=== PATIENT | male | born 1935 | race Caucasian/White ===

== ENCOUNTER 2016-12-13 19:15 | Inpatient (IN) | payer MEDICARE, OTHER ==
--- NOTE | ~2016-12-13 | CN ---
Consultation Report [facility] [address] [place]. [address] NAME: TYSON BATEMAN : 37 STATUS : ADM IN PAT#: [id number] AGE: 81 ADM/REG DATE : 12/13/16 MR#: [id number] REPORT SERV DATE: 12/14/16 DICTATED BY: TOMMY KLEIN DATE: 12/14/16 REPORT STATUS : Draft TRANSCRIBED BY: MODL DATE: 12/14/16 GI CONSULTATION DATE OF CONSULTATION: 12/14/2016 REASON FOR CONSULTATION: Evaluation and management of acute blood loss anemia, rectal bleeding, and abnormal CT scan. HISTORY OF PRESENT ILLNESS: Mr. Bateman is a 81-year-old male patient, who was admitted from the [facility] in [facility] secondary to anemia and bright red blood per rectum. It should be noted that the history of present illness has been gathered from review of the chart as well as [facility]. The patient does suffer from dementia and is limited on what he can tell me. He does state that he was sent in because he was passing blood in his stools. He tells me that he did not notice, it was told by a residential staff. He had an outpatient hemoglobin in the low sevens, thus prompting him to be sent to [facility] for further evaluation. He to me denied any abdominal pain, constipation, or diarrhea. Review of records, it looks like he had some complaints of lower back pain with radiation to the flank particularly on the right side. He has some shortness of breath as well as some dyspnea on exertion. CT scan was done on admission, noncontrasted exam showed suspected asymmetric thickening of the right side of the inferior rectal vault with recommendations of correlation of direct clinical exam. He had some mild suspected left bladder base thickening. Hemoglobin on admission was 7.2. He has received one unit of packed red blood cells, and is at present receiving the second unit. Last hemoglobin check was 8.1, BUN of 23, creatinine of 1.03. He is on a regimen of Xarelto, last dose being 12/12/2016 secondary to proximal atrial fibrillation. I have discussed with Mr. Bateman, we will plan on pursuing EGD as well as colonoscopy tomorrow on 12/15/2016 to evaluate his GI tract. I did discuss the risks, benefits, alternatives, and complications with him to include, but not limited to risk of bleeding, perforation, infection, reaction to medication, as well as cardiac and pulmonary side effects. PAST MEDICAL HISTORY: Paroxysmal atrial fibrillation, dementia, pacemaker placement, hypertension, anemia, urinary tract infections, and BPH. PAST SURGICAL HISTORY: Pacemaker and right hip surgery. SOCIAL HISTORY: Past tobacco. No alcohol. Resides at the [facility] in [facility]. FAMILY HISTORY: Noncontributory from a GI standpoint. ALLERGIES: ALLERGIES ARE TO NOTHING. HOME MEDICATIONS: Consist of Tylenol, albuterol, Advair, Zyprexa, Paxil, Xarelto, and Crestor. Consultation Report [place] [id number] [facility] [place]. [address] NAME: TYSON BATEMAN : 37 STATUS : ADM IN [facility]#: [id number] AGE: 81 ADM/REG DATE : 12/13/16 MR#: [id number] REPORT SERV DATE: 12/14/16 DICTATED BY: TOMMY KLEIN DATE: 12/14/16 REPORT STATUS : Draft TRANSCRIBED BY: PURNIMA DATE: 12/14/16 REVIEW OF SYSTEMS: Somewhat limited to the patient's demented status. PHYSICAL EXAMINATION: VITAL SIGNS: Temperature 98, pulse 90, respirations 18, and blood pressure 142/70. NEUROLOGIC: Reveals a male resting in bed. He awakens to name. GENERAL: He is cooperative. He is in no apparent distress. He is awake and alert. He has some mild right-sided weakness. HEAD, EARS, EYES, NOSE, AND THROAT: Anicteric. Pupils are equal, round, and reactive to light and accommodation. Normocephalic and atraumatic. NECK: No JVD. No palpable nodes. Supple. LUNGS: Diminished throughout with normal respiratory effort exhibited. Equal expansion. CARDIOVASCULAR SYSTEM: At present, regular rate and rhythm. ABDOMEN: Soft, nontender, and nondistended with active bowel sounds in all four quadrants. No organomegaly appreciated. EXTREMITIES: He has slight bilateral lower extremity edema with right lower extremity jesus redness. PERTINENT LABORATORY DATA: Sodium 142, potassium 4.0, BUN is 20, and creatinine 1. White count 7.3, hemoglobin 8.1, hematocrit 26.5, and platelet count 385. INR 1.2. BNP 216. TSH 1.9. ASSESSMENT: 1. Acute blood loss anemia with a history of chronic anemia. 2. Rectal bleeding. 3. Proximal atrial fibrillation, on Xarelto, last dose on 12/12/2016. 4. Mild volume overload, was given Lasix. 5. Dementia. 6. Abnormal CT scan of the rectum. PLAN: 1. Clear liquid diet. 2. Bowel prep. 3. Follow H and H, transfuse if needed. 4. EGD of the colon in the morning. 5. Labs of CBC, BMP, PT/INR and a CEA level. We will follow along. YULIANA/PURNIMA NATALYA Lua / [id number] Consultation Report [place] [address] [place]. [address] NAME: TYSON BATEMAN : 37 STATUS : ADM IN PAT#: [id number] AGE: 81 ADM/REG DATE : 12/13/16 MR#: [id number] REPORT SERV DATE: 12/14/16 DICTATED BY: TOMMY KLEIN DATE: 12/14/16 REPORT STATUS : Draft TRANSCRIBED BY: PURNIMA DATE: 12/14/16 CC: Edinson Laughlin M.D.
--- NOTE | ~2016-12-13 | DS ---
Discharge Summary [facility] [address] [place]. [address] NAME: TYSON BATEMAN : 37 STATUS : ADM IN [facility]#: [id number] AGE: 81 ADM/REG DATE : 12/13/16 MR#: [id number] REPORT SERV DATE: 12/16/16 DICTATED BY: CAREY LAO DATE: 12/16/16 REPORT STATUS : Draft TRANSCRIBED BY: MODL DATE: 12/16/16 ADMISSION DATE: 12/13/2016 DISCHARGE DATE: FINAL DIAGNOSES: 1. Acute blood loss anemia, status post two units of packed RBC. 2. Status rectal bleeding, likely diverticular bleed. 3. Paroxysmal atrial fibrillation with history of permanent pacemaker. 4. Hypertension. 5. Dementia. DIAGNOSTIC EXAMS: Echocardiogram showing normal left ventricular size with low-normal left ventricular systolic function with EF of 50%; mild left ventricular diastolic dysfunction; normal right ventricular size and systolic function; mild left atrial enlargement; mild aortic, mitral, and tricuspid regurgitation. Chest x-ray showing increased volume overload or CHF pattern. CAT scan of the abdomen showing suspected asymmetric thickening of the right side of the inferior rectal vault, recommend correlation with direct clinical exam; mild suspected left bladder base thickening; healed right femoral neck fracture; status post percutaneous pinning; small left adrenal adenoma; superior T10, T12, L1; and moderate DDD, L3-L5. HOSPITAL COURSE: Please refer to the H and P done by Dr. Arriaza dated on 12/14/2016. Briefly, this is a 81-year-old male with dementia, permanent pacemaker, residing at the [facility] in [facility]. The patient presented with hematochezia in the assisted and was found to be anemic, the patient was then transferred to our hospital. He was found to have an H and H of 7.2 and 24 and got two units of packed RBC. His H and H went up to 8.6 and 28.7 on discharge. We got GI to consult, and they did an EGD on the patient which revealed normal examination with no suggestion of bleeding and a colonoscopy showing diverticulosis in the sigmoid colon. Examination was otherwise normal. The patient's H and H was followed, it remained stable, there was no more evidence of bleeding. Meanwhile, after we gave blood, the patient went into some fluid overload. We did an echocardiogram which shows the above findings. We did not believe that he had a congestive heart failure; however, this might be due to the 2 units of blood that was given in a 81-year-old. Lasix was given, and the patient did well. We also interrogated the pacemaker, it was working fine, but it has only two months of battery life left, and I talked with the assisted, the patient already has a followup for a battery replacement next week in [place] with his aerographer, Dr. Liomn. The patient will now be discharged back to [facility]. He will be on the following medications: Zyprexa 5 mg three times a day; Paxil 40 mg a day; Xarelto 20 mg a day; Advair one puff twice a day, 250/50; Crestor 5 mg a day; Tylenol p.r.n.; and DuoNeb p.r.n. The patient will follow up with the assisted doctor and his PCP, Dr. Chin Jean; this has been explained to the patient and also to the assisted nurse, Charo, and they agreed Discharge Summary [address] [address] NAME: TYSON BATEMAN : 37 STATUS : ADM IN [facility]#: [id number] AGE: 81 ADM/REG DATE : 12/13/16 MR#: [id number] REPORT SERV DATE: 12/16/16 DICTATED BY: CAREY LAO DATE: 12/16/16 REPORT STATUS : Draft TRANSCRIBED BY: PURNIMA DATE: 12/16/16 and understood the plan. DWAINE/PURNIMA Carey Lao M.D. / [id number] CC: Edinson Laughlin M.D. Jung Park, M.D.
--- NOTE | ~2016-12-13 | EGD ---
EGD REPORT [facility] [address] [address] NAME: MYKE BATEMAN : 37 STATUS : ADM IN PAT#: [id number] AGE: 81 ADM/REG DATE : 12/13/16 MR#: [id number] REPORT SERV DATE: 12/15/16 DICTATED BY: OMAR TINEO DATE: 12/15/16 REPORT STATUS : Draft TRANSCRIBED BY: [facility] DATE: 12/15/16 Endoscopy Center Patient Name: Myke Bateman Date of : 1935 Attending MD: OMAR TINEO MD Procedure Date No Time: 12/15/2016 Procedure: Colonoscopy Indications: Hematochezia Referring MD: BRITTA MILLS Medicines: Monitored Anesthesia Care Complications: No immediate complications. Estimated blood loss: None. Procedure: Pre-Anesthesia Assessment: - ASA Grade Assessment: III - A patient with severe systemic disease. After I obtained informed consent, the scope was passed under direct vision. Throughout the procedure, the patient's blood pressure, pulse, and oxygen saturations were monitored continuously. The CF [id number] was introduced through the anus and advanced to the cecum, identified by appendiceal orifice and ileocecal valve. The colonoscopy was performed without difficulty. The patient tolerated the procedure well. The quality of the bowel preparation was good. Findings: The perianal and digital rectal examinations were normal. Pertinent negatives include normal sphincter tone and no palpable rectal lesions. A few medium-mouthed diverticula were found in the sigmoid colon. The exam was otherwise without abnormality on direct and retroflexion views. Impression: - Diverticulosis in the sigmoid colon. - The examination was otherwise normal on direct and retroflexion views. Recommendation: - Return patient to [facility] for observation. - Check hemoglobin q 12 hours until stable. Procedure Code(s): --- Professional --- 87026, Colonoscopy, flexible, proximal to splenic flexure; diagnostic, with or without collection of specimen(s) by brushing or washing, with or without colon decompression (separate procedure) Diagnosis Code(s): --- Professional --- EGD REPORT [address] [address] NAME: MYKE BATEMAN : 37 STATUS : ADM IN [facility]#: [id number] AGE: 81 ADM/REG DATE : 12/13/16 MR#: [id number] REPORT SERV DATE: 12/15/16 DICTATED BY: OMAR TINEO DATE: 12/15/16 REPORT STATUS : Draft TRANSCRIBED BY: [employer] DATE: 12/15/16 K57.30, Diverticulosis of large intestine without perforation or abscess without bleeding K92.1, Melena CPT copyright 2013 [employer]. All rights reserved. The codes documented in this report are preliminary and upon elevator repair mechanic review may be revised to meet current compliance requirements. Omar Tineo MD OMAR TINEO MD 12/15/2016 8:55 AM This report has been signed electronically. Number of Addenda: 0 Note Initiated On: 12/15/2016 8:17 AM Scope Withdrawal Time 0 hours 10 minutes [address] [place] [address]
--- NOTE | ~2016-12-13 | EGD ---
EGD REPORT [facility] [address] [address] NAME: MYKE BATEMAN : 37 STATUS : ADM IN PAT#: [id number] AGE: 81 ADM/REG DATE : 12/13/16 MR#: [id number] REPORT SERV DATE: 12/15/16 DICTATED BY: OMAR TINEO DATE: 12/15/16 REPORT STATUS : Draft TRANSCRIBED BY: [facility] DATE: 12/15/16 Endoscopy Center Patient Name: Myke Bateman Date of : 1935 Attending MD: OMAR TINEO MD Procedure Date No Time: 12/15/2016 Procedure: Upper GI endoscopy Indications: Hematochezia Referring MD: BRITTA MILLS Medicines: Monitored Anesthesia Care Complications: No immediate complications. Estimated blood loss: None. Procedure: Pre-Anesthesia Assessment: - ASA Grade Assessment: III - A patient with severe systemic disease. After obtaining informed consent, the endoscope was passed under direct vision. Throughout the procedure, the patient's blood pressure, pulse, and oxygen saturations were monitored continuously. The GIF [id number] was introduced through the mouth, and advanced to the second part of duodenum. The upper GI endoscopy was accomplished without difficulty. The patient tolerated the procedure well. Findings: The examined esophagus was normal. The entire examined stomach was normal. The examined duodenum was normal. The cardia and gastric fundus were normal on retroflexion. Impression: - Normal examination with no suggestion of bleeding. Recommendation: - Perform a colonoscopy today. Procedure Code(s): --- Professional --- 57977, Esophagogastroduodenoscopy, flexible, transoral; diagnostic, including collection of specimen(s) by brushing or washing, when performed (separate procedure) Diagnosis Code(s): --- Professional --- K92.1, Melena CPT copyright 2013 [employer]. All rights reserved. The codes documented in this report are preliminary and upon sustainable agriculture specialist review may EGD REPORT [facility] [address] [address] NAME: MYKE BATEMAN : 37 STATUS : ADM IN [facility]#: [id number] AGE: 81 ADM/REG DATE : 12/13/16 MR#: [id number] REPORT SERV DATE: 12/15/16 DICTATED BY: OMAR TINEO DATE: 12/15/16 REPORT STATUS : Draft TRANSCRIBED BY: [employer] DATE: 12/15/16 be revised to meet current compliance requirements. Omar Tineo MD OMAR TINEO MD 12/15/2016 8:32 AM This report has been signed electronically. Number of Addenda: 0 Note Initiated On: 12/15/2016 8:16 AM Scope Withdrawal Time 0 hours 0 minutes 0 seconds [address] [address]
--- NOTE | ~2016-12-13 | HP ---
History And Physical [address] [address] NAME: TYSON BATEMAN : 37 STATUS : ADM IN PAT#: [id number] AGE: 81 ADM/REG DATE : 12/13/16 MR#: [id number] REPORT SERV DATE: 12/14/16 DICTATED BY: CLAUDINE OTOOLE DATE: 12/14/16 REPORT STATUS : Draft TRANSCRIBED BY: MODL DATE: 12/14/16 DATE OF ADMISSION: 12/13/2016 CHIEF COMPLAINT: A 81-year-old male with chronic dementia, residing at the [facility] in [place], now presenting with anemia and bright red blood per rectum. HISTORY OF PRESENTING ILLNESS: The patient's history was obtained through a limited interview with the patient himself and a review of medical records obtained from the [facility] in [place]. The patient does describe lower back discomfort that radiates to his flank, particular to right side, aching quality, 5/10 severity. He has not noticed any blood in his stool himself although it was reported from the facility, no melena. He describes shortness of breath, characterized by dyspnea on exertion. No cough. No chest pain. The patient is chronically disoriented, but no reported agitation or behavioral issues. No lightheadedness. No syncope. No nausea or vomiting. REVIEW OF SYSTEMS: Otherwise, a 14-point review of systems was obtained, was negative, although with question of validity in light of the patient's confusion although he was able to answer questions, but otherwise had no complaints. PAST MEDICAL HISTORY: 1. Atrial fibrillation. 2. Dementia. 3. Pacemaker. 4. Hypertension. 5. Anemia. 6. Urinary tract infection. 7. Benign prostatic hypertrophy. PAST SURGICAL HISTORY: 1. Pacemaker. 2. Right hip surgery. ALLERGIES: NO KNOWN DRUG ALLERGIES. CODE STATUS: DNR. SOCIAL HISTORY: Quit smoking. No alcohol abuse. Has two children, four grandchildren. History And Physical [address] [address] NAME: TYSON BATEMAN : 37 STATUS : ADM IN PAT#: [id number] AGE: 81 ADM/REG DATE : 12/13/16 MR#: [id number] REPORT SERV DATE: 12/14/16 DICTATED BY: CLAUDINE OTOOLE DATE: 12/14/16 REPORT STATUS : Draft TRANSCRIBED BY: PURNIMA DATE: 12/14/16 Resides at the [facility] in [place]. FAMILY HISTORY: Dementia. CURRENT MEDICATIONS: Include Tylenol, DuoNeb nebulizers, Advair, Zyprexa 5 mg p.o. t.i.d., Paxil 40 mg p.o. daily, Xarelto 20 mg p.o. daily, Crestor 5 mg p.o. daily. PHYSICAL EXAMINATION: VITAL SIGNS: Temperature 97.8, pulse 84, blood pressure 177/85, respiratory rate 23, and O2 saturation 100% on room air. GENERAL: A pleasant, cooperative, male. He does not appear in any distress at this time. HEENT: Pupils equal, round, and reactive to light. No conjunctival pallor. No scleral icterus. Nares are patent. Oropharynx is clear of obstruction. Moist mucous membranes. NECK: Trachea midline. No thyromegaly. LYMPH: No cervical lymphadenopathy. No supraclavicular lymphadenopathy. No inguinal lymphadenopathy. RESPIRATORY: Clear to auscultation at bases. No wheezes, rales, or rhonchi. Normal respiratory effort. CARDIOVASCULAR: Regular rate and rhythm. No murmurs, rubs, or gallops. No extremity edema is appreciated. ABDOMEN: No tenderness at all on exam, nondistended abdomen. No hepatosplenomegaly is appreciated. DERMATOLOGICAL: Warm and dry. EXTREMITIES: No pallor, no cyanosis. PSYCHIATRIC: Quite disoriented to time, location, in his recent history it seems. He has a normal affect though and is in a pleasant mood without any agitation. LABORATORY DATA: White blood cell count 7.1, hemoglobin 7.2, hematocrit 24, platelets 373. Hemoccult of stools was positive. Brain natriuretic peptide 198. INR 1.3. STUDIES: 1. Chest x-ray by my own evaluation shows pulmonary edema, cardiomegaly. 2. CT scan of the abdomen showed rectal inflammation, bladder thickening. ASSESSMENT AND PLAN: 1. Rectal bleeding. Consult Dr. Alexa Harvey, Javascript Engineer, follow hemoglobin and hematocrit, hold Xarelto. 2. Acute blood loss anemia. Transfuse blood and monitor. 3. Paroxysmal atrial fibrillation. Holding Xarelto secondary to gastrointestinal bleed. Check telemetry. 4. Volume overload. Try diuresis. Follow transfusion with Lasix IV. 5. Pacemaker. We will interrogate. 6. Dementia. 7. DNR status. History And Physical [address] [place]. [address] NAME: TYSON BATEMAN : 37 STATUS : ADM IN PAT#: [id number] AGE: 81 ADM/REG DATE : 12/13/16 MR#: [id number] REPORT SERV DATE: 12/14/16 DICTATED BY: CLAUDINE OTOOLE DATE: 12/14/16 REPORT STATUS : Draft TRANSCRIBED BY: PURNIMA DATE: 12/14/16 KPL/PURNIMA Claudine Otoole M.D. / [id number] CC: Edinson Laughlin M.D. Jung Park, M.D.
[2016-12-13 18:56] LABS: BASOPHILS 0.3 %; BASOPHILS ABSOLUTE 0.02 10/3/uL (0.0-0.16); EOSINOPHILS 10.6 %; EOSINOPHILS ABSOLUTE 0.75 10/3/uL (0.0-0.53); ER CBC TAT 0 Hrs 07 Mins; HEMOGLOBIN 7.2 g/dL (13.6-17.8); IMMATURE GRANULOCYTES 0.3 %; IMMATURE GRANULOCYTES ABSOLUTE 0.02 10/3/uL (0.0-0.11); LYMPHOCYTES 22.3 %; LYMPHOCYTES ABSOLUTE 1.58 10/3/uL (0.67-4.30); MEAN CORPUSCULAR HEMOGLOB 24.3 pg (26.0-34.0); MEAN CORPUSCULAR VOLUME 81.1 fL (80-100); MONOCYTES 10.4 %; MONOCYTES ABSOLUTE 0.74 10/3/uL (0.21-1.20); NEUTROPHILS 56.1 %; NEUTROPHILS ABSOLUTE 3.99 10/3/uL (2.02-8.40); PLATELET COUNT 373 10/3/uL (150-400); RBC DISTRIBUTION WIDTH 16.8 % (12.0-16.0); RED CELL COUNT 2.96 10/6/uL (4.7-6.1); WHITE BLOOD CELLS 7.1 10/3/uL (4.5-10.5)
[2016-12-13 18:57] LABS: MANUAL DIFF NO %
[2016-12-13 19:10] LABS: INTERNATIONAL NORMAL RATI 1.3 UNITS (-); PARTIAL THROMBO TIME 37.1 SEC (22.5-37.2); PROTIME (NOT ORD) 16.5 SEC (12.0-14.5)
[~2016-12-13 19:15] MED LIST: 8 HOUR650 MG PO; ADVAIR250 INH; CRESTOR5 MG PO; DUONEB INH; PAXIL40 MG PO; XARELTO20 MG PO; ZYP5 PO
[2016-12-14 01:44] LABS: HEMATOCRIT 23.9 % (40.0-51.0); HEMOGLOBIN 7.4 g/dL (13.6-17.8)
[2016-12-14 01:56] LABS: BUN (BLOOD UREA NITROGEN) 23 MG/DL (6-23); CALCIUM, SERUM 8.5 MG/DL (8.5-10.4); CHLORIDE, SERUM 107 MMOL/L (96-112); CO2 (CARBON DIOXIDE) 29 MMOL/L (24-34); CREATININE 1.03 MG/DL (0.70-1.30); GFR AFRICAN AMERICAN 80 ML/MIN (>=60); GFR NON AFRICAN AMERICAN 69 ML/MIN (>=60); GLUCOSE, SERUM 93 MG/DL (60-99); POTASSIUM, SERUM 4.2 MMOL/L (3.5-5.3); SODIUM, SERUM 143 MMOL/L (135-148)
[2016-12-14 07:04] LABS: BASOPHILS 0.4 %; BASOPHILS ABSOLUTE 0.03 10/3/uL (0.0-0.16); EOSINOPHILS 9.5 %; EOSINOPHILS ABSOLUTE 0.69 10/3/uL (0.0-0.53); HEMOGLOBIN 8.1 g/dL (13.6-17.8); IMMATURE GRANULOCYTES 0.1 %; IMMATURE GRANULOCYTES ABSOLUTE 0.01 10/3/uL (0.0-0.11); LYMPHOCYTES 16.5 %; MEAN CORPUS HGB CONC 30.6 g/dL (32.0-36.0); MEAN CORPUSCULAR VOLUME 81.8 fL (80-100); MEAN PLATELET VOLUME 9.8 fL (9.2-13.0); MONOCYTES 12.7 %; MONOCYTES ABSOLUTE 0.92 10/3/uL (0.21-1.20); NEUTROPHILS 60.8 %; NEUTROPHILS ABSOLUTE 4.42 10/3/uL (2.02-8.40); PLATELET COUNT 385 10/3/uL (150-400); RBC DISTRIBUTION WIDTH 16.7 % (12.0-16.0); RED CELL COUNT 3.24 10/6/uL (4.7-6.1); WHITE BLOOD CELLS 7.3 10/3/uL (4.5-10.5)
[2016-12-14 07:05] LABS: HEMATOCRIT 26.5 % (40.0-51.0); MANUAL DIFF NO %
[2016-12-14 07:11] LABS: PARTIAL THROMBO TIME 34.3 SEC (22.5-37.2)
[2016-12-14 07:12] LABS: INTERNATIONAL NORMAL RATI 1.2 UNITS (-); PROTIME (NOT ORD) 15.1 SEC (12.0-14.5)
[2016-12-14 07:29] LABS: A/G RATIO 0.7 (0.7-1.9); ALKALINE PHOSPHATASE 69 U/L (45-117); BUN (BLOOD UREA NITROGEN) 20 MG/DL (6-23); CALCIUM, SERUM 8.4 MG/DL (8.5-10.4); CHLORIDE, SERUM 105 MMOL/L (96-112); CO2 (CARBON DIOXIDE) 29 MMOL/L (24-34); GFR AFRICAN AMERICAN 83 ML/MIN (>=60); GFR NON AFRICAN AMERICAN 71 ML/MIN (>=60); GLOBULIN 4.2 G/DL (2.5-4.1); GLUCOSE, SERUM 84 MG/DL (60-99); SGOT(AST) 13 U/L (5-40); SGPT(ALT) 13 U/L (5-65); SODIUM, SERUM 142 MMOL/L (135-148); TOTAL BILIRUBIN 0.5 MG/DL (0-1.2); TOTAL PROTEIN 7.2 G/DL (6.0-8.5); TROPONIN I 0.04 NG/ML (<0.05)
[2016-12-14 09:20] LABS: ASCORBIC ACID (UR NOT ORDER) NEG (NEG); BILIRUBIN, URINE NEGATIVE (NEG); KETONE, URINE NEGATIVE (NEG); LEUKOCYTE ESTERASE(NOT OR LARGE (NEG)
[2016-12-14 09:21] LABS: WBC (NOT ORDERED) (RFLEX) > 182 (0-5)
[2016-12-14 12:44] LABS: HEMOGLOBIN 8.6 g/dL (13.6-17.8)
[2016-12-14 18:04] LABS: HEMATOCRIT 30.3 % (40.0-51.0); HEMOGLOBIN 9.1 g/dL (13.6-17.8)
[2016-12-15 00:08] LABS: HEMATOCRIT 28.8 % (40.0-51.0)
[2016-12-15 06:30] LABS: BASOPHILS 0.3 %; BASOPHILS ABSOLUTE 0.02 10/3/uL (0.0-0.16); EOSINOPHILS 8.4 %; EOSINOPHILS ABSOLUTE 0.62 10/3/uL (0.0-0.53); HEMATOCRIT 27.2 % (40.0-51.0); HEMOGLOBIN 8.3 g/dL (13.6-17.8); IMMATURE GRANULOCYTES 0.1 %; IMMATURE GRANULOCYTES ABSOLUTE 0.01 10/3/uL (0.0-0.11); MEAN CORPUS HGB CONC 30.5 g/dL (32.0-36.0); MEAN CORPUSCULAR HEMOGLOB 24.6 pg (26.0-34.0); MEAN CORPUSCULAR VOLUME 80.5 fL (80-100); MONOCYTES 11.4 %; MONOCYTES ABSOLUTE 0.84 10/3/uL (0.21-1.20); NEUTROPHILS 60.8 %; NEUTROPHILS ABSOLUTE 4.48 10/3/uL (2.02-8.40); PLATELET COUNT 389 10/3/uL (150-400); RED CELL COUNT 3.38 10/6/uL (4.7-6.1); WHITE BLOOD CELLS 7.4 10/3/uL (4.5-10.5)
[2016-12-15 06:37] LABS: INTERNATIONAL NORMAL RATI 1.2 UNITS (-); MANUAL DIFF NO %; PROTIME (NOT ORD) 14.6 SEC (12.0-14.5)
[2016-12-15 06:50] LABS: BUN (BLOOD UREA NITROGEN) 21 MG/DL (6-23); CALCIUM, SERUM 8.4 MG/DL (8.5-10.4); CHLORIDE, SERUM 108 MMOL/L (96-112); CO2 (CARBON DIOXIDE) 29 MMOL/L (24-34); CREATININE 1.05 MG/DL (0.70-1.30); GFR AFRICAN AMERICAN 78 ML/MIN (>=60); GFR NON AFRICAN AMERICAN 67 ML/MIN (>=60); GLUCOSE, SERUM 84 MG/DL (60-99); POTASSIUM, SERUM 4.1 MMOL/L (3.5-5.3); SODIUM, SERUM 145 MMOL/L (135-148)
[2016-12-15 06:54] LABS: CEA 1.8 NG/ML
[2016-12-15 12:21] LABS: HEMATOCRIT 27.5 % (40.0-51.0); HEMOGLOBIN 8.3 g/dL (13.6-17.8)
[2016-12-15 18:10] LABS: HEMATOCRIT 28.7 % (40.0-51.0); HEMOGLOBIN 8.6 g/dL (13.6-17.8)
[2016-12-16 07:33] LABS: HEMATOCRIT 27.8 % (40.0-51.0); HEMOGLOBIN 8.5 g/dL (13.6-17.8)
== END 2016-12-16 11:44 | DRG 378 ==
LOC: ER 19:15 → 5SO 22:01
PROVIDERS: Emergency Medicine; Hospitalist; Internal Medicine Gastroenterology; Nurse Practitioner Family
PROC: 30233N1 Transfusion of Nonautologous Red Blood Cells into Peripheral Vein, Percutaneous Approach (ICD-10-PCS; principal; 2016-12-14)
PROC: 0DJ08ZZ Inspection of Upper Intestinal Tract, Via Natural or Artificial Opening Endoscopic (ICD-10-PCS; 2016-12-15)
PROC: 0DJD8ZZ Inspection of Lower Intestinal Tract, Via Natural or Artificial Opening Endoscopic (ICD-10-PCS; 2016-12-15 08:00)
DX: K57.31 Diverticulosis of large intestine without perforation or abscess with bleeding (principal); D62 Acute posthemorrhagic anemia; E87.70 Fluid overload, unspecified; F03.90 Unspecified dementia, unspecified severity, without behavioral disturbance, psychotic disturbance, mood disturbance, and anxiety; I48.0 Paroxysmal atrial fibrillation; Z95.0 Presence of cardiac pacemaker; Z66 Do not resuscitate; Z87.891 Personal history of nicotine dependence; Z79.899 Other long term (current) drug therapy; Z79.01 Long term (current) use of anticoagulants; N40.0 Benign prostatic hyperplasia without lower urinary tract symptoms; Z98.890 Other specified postprocedural states; I10 Essential (primary) hypertension
CPT/HCPCS: 36415; 36430; 71010; 74176; 80048; 80053; 81001; 82378; 82962; 83605; 83735; 83880; 84443; 84484; 85014; 85018; 85025; 85610; 85730; 86850; 86900; 86901; 86920; 87077; 87086; 87186; 94640; 99285; A9270-GY; C8929; J1940; J2370; P9016; Q9957